=== PATIENT | male | born 1940 | race Caucasian/White ===

== ENCOUNTER 2020-06-09 13:50 | Outpatient (RCR) | payer MEDICARE, SELFPAY ==
[2020-06-16 20:38] LABS: Glucose, Whole Blood 222 mg/dL (60-115)
[2020-07-02 20:32] LABS: Glucose, Whole Blood 131 mg/dL (60-115)
[2020-07-03 20:21] LABS: Glucose, Whole Blood 138 mg/dL (60-115)
[2020-07-04 20:32] LABS: Glucose, Whole Blood 132 mg/dL (60-115)
[2020-07-05 14:13] LABS: Glucose, Whole Blood 159 mg/dL (60-115)
[2020-07-05 21:13] LABS: Glucose, Whole Blood 148 mg/dL (60-115)
[2020-07-06 20:25] LABS: Estimated Glomerular Filt Rate 8
[2020-07-06 21:22] LABS: Glucose, Whole Blood 160 mg/dL (60-115)
[2020-07-07 07:22] LABS: Anion Gap 25 (12-20); Blood Urea Nitrogen 125 mg/dL (9-16); Calcium 8.3 mg/dL (8.4-10.2); Carbon Dioxide 18 mmol/L (22-29); Chloride 101 mmol/L (96-108); Creatinine Clr Calc Pharmacy 10.1; Estimated Glomerular Filt Rate 8; Glucose Random 166 mg/dL (60-115); Potassium 5.7 mmol/l (3.3-5.1); Sodium 138 mmol/L (135-145)
== END 2020-07-07 | disposition short-term general hospital (02) ==
LOC: HO.SHU2 13:50
PROVIDERS: Visit Provider Hospitalist
DX: Z51.89 Encounter for other specified aftercare (principal)
CPT/HCPCS: 80048; 82565; 82947; J2270; J2543

== ENCOUNTER 2020-06-17 09:21 | Emergency (ER) | payer MEDICARE, SELFPAY ==
[2020-06-17] VITALS (7 sets, daily range): BP systolic 134–164; BP diastolic 43–82; PULSE 49–66; RESP 19–21; TEMP 36.7–38.7; O2SAT 97–99; BMI 37.5
--- NOTE | 2020-06-17 | US_ITS ---
EXAMINATION: US ABDOMEN LIMITED CLINICAL INFORMATION: Right abdominal pain.. COMPARISON: CT abdomen and pelvis 06/17/2020 TECHNIQUE: Real-time imaging of the right upper quadrant abdominal viscera. FINDINGS: Gallbladder is significantly distended measuring 14.8 x 4.0 x 4.3 cm. There is echogenic gallstones measuring 6.7 x 2.6 x 4.1 cm. Also visualized is echogenic bile/sludge. The gallbladder was diffusely thickened measuring 0.[address] abdomen exam patient has pericholecystic fat stranding. No pericholecystic fluid collection seen on ultrasound. Common bile duct is normal size measuring 0.44 cm. IMPRESSION: Findings consistent with cholelithiasis and cholecystitis. Results were discussed with Dr. Leslie Randhawa at 1:25 PM
--- NOTE | 2020-06-17 09:47 | ED.ABDPAIN ---
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) Limitations: no limitations History of Present Illness MD elicited complaint: abdominal pain Onset (ago): day(s) (2) Pain Consistency: constant Location: RLQ Severity: moderate Quality: aching Migration to: no migration Exacerbating factors: movement Relieving factors: nothing Associated symptoms: nausea and diarrhea Related Data Home Medications Medication Instructions Recorded Confirmed acetaminophen 650 mg PO Q4H PRN 06/17/20 06/17/20 apixaban 2.5 mg PO BID@0900,1700 06/17/20 06/17/20 bisacodyl 10 mg PA DAILY PRN 06/17/20 06/17/20 calcium carbonate [Tums E-X] 300 mg PO Q2H PRN 06/17/20 06/17/20 cholecalciferol (vitamin D3) 25 mcg PO DAILY 06/17/20 06/17/20 dextromethorphan-guaifenesin 10 ml PO Q4H PRN 06/17/20 06/17/20 [Guaifenesin DM] fenofibrate 54 mg PO DAILY 06/17/20 06/17/20 fluticasone furoate-vilanterol 1 inh INHALATION DAILY 06/17/20 06/17/20 [Breo Ellipta] fluticasone propionate [Flonase] 1 spray INTRANASAL DAILY 06/17/20 06/17/20 gabapentin 100 mg PO BEDTIME 06/17/20 06/17/20 hydralazine 25 mg PO TID@0600,1400,2200 06/17/20 06/17/20 hydrocortisone 1 applic TOPICAL BID 06/17/20 06/17/20 insulin glargine [Lantus U-100 20 unit SUBCUT BEDTIME 06/17/20 06/17/20 Insulin] loperamide 2 mg PO Q6H PRN 06/17/20 06/17/20 loratadine 10 mg PO DAILY 06/17/20 06/17/20 magnesium hydroxide [Milk of 30 ml PO DAILY PRN 06/17/20 06/17/20 Magnesia] metoprolol succinate 100 mg PO DAILY 06/17/20 06/17/20 multivitamin with minerals 1 tab PO DAILY 06/17/20 06/17/20 nifedipine [Nifedical XL] 90 mg PO DAILY 06/17/20 06/17/20 omeprazole 20 mg PO DAILY@1600 06/17/20 06/17/20 ondansetron 4 mg PO Q4H PRN 06/17/20 06/17/20 sertraline 50 mg PO DAILY 06/17/20 06/17/20 tamsulosin 0.4 mg PO DAILY 06/17/20 06/17/20 Allergies Allergy/AdvReac Type Severity Reaction Status Date / Time No Known Allergies Allergy Unverified 06/02/20 15:37 [No Known Allergies*] Review of Systems Review of Systems Constitutional : No Weight loss, positive Fever, No Chills ENT/Mouth : No sore throat, No Rhinorrhea Eyes: No Swelling, No Redness Cardiovascular : No Chest Pain, No SOB, NoEdema Respiratory : No Cough, No Sputum, No Wheezing Gastrointestinal : Positive Nausea, noVomiting, positive Diarrhea, positive abdominal Pain, No Hematochezia, No Melena Genitourinary : No Dysuria, No Urinary Frequency, No Hematuria, No Urgency Musculoskeletal : No joint pain, No Myalgias, No Joint Swelling Skin : No Skin Lesions, No rash Neuro : No Weakness, No Numbness, No Dizziness, No Headache Psych : No Anxiety/Panic, No Depression Heme/Lymph: No Bruising, No Lymphadenopathy Endocrine : No Polyuria, No Polydipsia All other systems reviewed and are negative. Physical Exam Vital Signs and I&O and Narrative: Vital Signs and I&O: Vital Signs Temp 98.8 F 06/17/20 12:15 Pulse 52 06/17/20 12:15 Resp 19 06/17/20 12:15 BP 134/51 L 06/17/20 12:15 Pulse Ox 98 06/17/20 12:15 Intake & Output 06/16/20 06/17/20 06/17/20 18:59 06:59 18:59 Intake Total 1100 / 1100 Balance 1100 / 1100 Weight 108.912 kg Intake: Intake, IV Amoun t 1099 Magnesium Sulf ate/H2O 2 gm In 50 / 50 50 ml @ 50 mls /hr IV ONCE ONE Rx#:[id number] Piperacillin S odium/Tazobactam 50 / 50 3.375 gm In 0. 9 % Sodium Chloride 50 ml @ 100 mls/hr IV ONCE ONE Rx#:[id number] 0.9 % Sodium C hloride 1,000 ml 1000 / 1000 @ 999 mls/hr I VCONT .Q1H1M ARAM Rx#:[id number] Body Mass Index 37.5 Appearance: Alert. Oriented X3. No acute distress. Eyes: Pupils equal, round and reactive to light. ENT: Pharynx normal. Neck: Normal inspection. Neck supple. CVS: Normal heart rate and rhythm. Pulses normal. Respiratory: No respiratory distress. Breath sounds normal. Abdomen: Soft and moderate LRQ ttp. Skin: Skin warm and dry. Normal skin color. Normal skin turgor. Extremities: No lower extremity edema. No lower extremity edema. Neuro: Oriented X 3. No motor deficit. No sensory deficit. Course Reevaluation(s) Reevaluation #1: call From Radiology - order US to confirm GB pathology but overall ascending colon partial obstruction from inflammation and diverticulitis Time: 11:55 Reevaluation #2: call To Dr. Randhawa Time: 13:40 Reevaluation #3: patient with complicated history - Dr. Randhawa thinks given his apixaban use, medical problems and presentation should go to tertiary center will contact [facility] now pending call back from Dr. Zaldivar from surgery Additional Reevaluation(s): per Dr. Zaldivar send to [facility] ED at this time MDM - Abdominal Pain MDM Narrative Medical decision making narrative: patient with fevers, RLQ ttp and diarrhea, will need labs, cultures, lactic acid, IVF, tylenol, morphine for pain CT scan to evalutae for colitis/appendicitis, empiric zosyn ordered Lab Data Result diagrams: 06/17/20 10:20 06/17/20 10:20 Labs: Lab Results 06/17/20 06/17/20 06/17/20 Range/Units 10:20 10:20 10:20 WBC 10.8 (4.8-10.8) X10*3/uL RBC 3.72 L (4.60-5.80) X10*6/uL Hgb 9.3 L (14.0-18.0) g/dl Hct 30.8 L (42-52) % MCV 82.8 (80-98) fL MCH 25.0 L (27.0-33.0) pg MCHC 30.2 L (31.0-36.0) g/dl RDW 15.9 (11.0-16.0) % Plt Count 241 (160-400) X10*3/uL MPV 10.5 (9.4-12.4) fL Immature Gran % (Auto) 0.6 H (0.0-0.4) % Neut % (Auto) 75.7 H (45-73) % Lymph % (Auto) 9.1 L (20-40) % Moca % (Auto) 11.6 H (2-11) % Eos % (Auto) 2.9 (0-4) % Baso % (Auto) 0.1 (0-2) % Neut # (Auto) 8.2 (2.0-8.3) X10*3/uL Lymph # (Auto) 1.0 L (1.2-4.9) X10*3/uL [place]oca # (Auto) 1.3 H (0.1-1.2) X10*3/uL Eos # (Auto) 0.3 (0.0-0.4) X10*3/uL Baso # (Auto) 0.0 (0.0-0.2) X10*3/uL Abs Immat Gran (auto) 0.06 H (0.00-0.03) X10*3/uL Absolute Nucleated RBC 0.000 (0.0-0.012) X10*3/uL Nucleated RBC % (auto) 0.0 (0.0-0.2) /100WBC PT 16.7 H (10.8-13.0) SEC INR 1.4 H (0.9-1.1) APTT 32.3 (24.1-38.0) SEC Sodium 140 (135-145) mmol/L Potassium 3.8 (3.3-5.1) mmol/l Chloride 105 (96-108) mmol/L Carbon Dioxide 28 (22-29) mmol/L Anion Gap 11 L (12-20) BUN 31 H (9-16) mg/dL Creatinine 1.65 H (0.5-1.4) mg/dL Estim Creat Clear Calc 42.0 Estimated GFR 40 Random Glucose 197 H (60-115) mg/dL Lactic Acid (0.5-2.0) mmol/L Calcium 8.1 L (8.4-10.2) mg/dL Magnesium 1.2 L* (1.6-2.6) mg/dL Total Bilirubin 0.3 (0.0-1.0) mg/dL Direct Bilirubin 0.2 (0.0-0.5) mg/dL AST 9 (5-37) U/L ALT 8 (0-40) U/L Alkaline Phosphatase 60 (39-117) U/L Total Protein 6.3 L (6.5-8.0) g/dL Albumin 3.2 L (3.5-5.0) g/dL Lipase 22 (8-78) U/L 06/17/20 Range/Units 10:42 WBC (4.8-10.8) X10*3/uL RBC (4.60-5.80) X10*6/uL Hgb (14.0-18.0) g/dl Hct (42-52) % MCV (80-98) fL MCH (27.0-33.0) pg MCHC (31.0-36.0) g/dl RDW (11.0-16.0) % Plt Count (160-400) X10*3/uL MPV (9.4-12.4) fL Immature Gran % (Auto) (0.0-0.4) % Neut % (Auto) (45-73) % Lymph % (Auto) (20-40) % Moca % (Auto) (2-11) % Eos % (Auto) (0-4) % Baso % (Auto) (0-2) % Neut # (Auto) (2.0-8.3) X10*3/uL Lymph # (Auto) (1.2-4.9) X10*3/uL Moca # (Auto) (0.1-1.2) X10*3/uL Eos # (Auto) (0.0-0.4) X10*3/uL Baso # (Auto) (0.0-0.2) X10*3/uL Abs Immat Gran (auto) (0.00-0.03) X10*3/uL Absolute Nucleated RBC (0.0-0.012) X10*3/uL Nucleated RBC % (auto) (0.0-0.2) /100WBC PT (10.8-13.0) SEC INR (0.9-1.1) APTT (24.1-38.0) SEC Sodium (135-145) mmol/L Potassium (3.3-5.1) mmol/l Chloride (96-108) mmol/L Carbon Dioxide (22-29) mmol/L Anion Gap (12-20) BUN (9-16) mg/dL Creatinine (0.5-1.4) mg/dL Estim Creat Clear Calc Estimated GFR Random Glucose (60-115) mg/dL Lactic Acid 0.8 (0.5-2.0) mmol/L Calcium (8.4-10.2) mg/dL Magnesium (1.6-2.6) mg/dL Total Bilirubin (0.0-1.0) mg/dL Direct Bilirubin (0.0-0.5) mg/dL AST (5-37) U/L ALT (0-40) U/L Alkaline Phosphatase (39-117) U/L Total Protein (6.5-8.0) g/dL Albumin (3.5-5.0) g/dL Lipase (8-78) U/L ECG Data Attestation: I personally reviewed and interpreted this ECG as follows: ECG interpretation date: 06/17/20 ECG interpretation time: 11:47 Interpretation: Rate:51 Rhythm: sinus bradycardia [place]: normal axis Normal P waves. Normal SOLA. Normal QRS complex. ST T wave : nonspecific changes qTC: normal The study has been interpreted contemporaneously by me. . Critical Care Time Critical Care Time Critical Care Time: Yes Total Critical Care Time: 60 Attestation: I personally attest to this time spent taking care of patientI personally attest to this time spent taking care of the patient Discharge Plan Discharge Clinical Impression: Cholecystitis, Partial bowel obstruction, Abdominal pain Patient Disposition: er [facility] Prescriptions: No Action acetaminophen 325 mg Tablet 650 mg PO Q4H PRN (Reason: Cold Symptoms) RF: 0 bisacodyl 10 mg Suppository 10 mg PA DAILY PRN (Reason: Anaphylaxis) RF: 0 apixaban 2.5 mg Tablet 2.5 mg PO BID@0900,1700 RF: 0 hydralazine 25 mg Tablet 25 mg PO TID@0600,1400,2200 RF: 0 calcium carbonate [Tums E-X] 300 mg (750 mg) Tablet,Chewable 300 mg PO Q2H PRN (Reason: Heartburn) RF: 0 dextromethorphan-guaifenesin [Guaifenesin DM] 10-100 mg/5 mL Syrup 10 ml PO Q4H PRN (Reason: Cough) RF: 0 hydrocortisone 1 % Cream 1 applic TOPICAL BID RF: 0 gabapentin 100 mg Capsule 100 mg PO BEDTIME RF: 0 fluticasone propionate [Flonase] 50 mcg/actuation [place],Suspension 1 spray INTRANASAL DAILY RF: 0 cholecalciferol (vitamin D3) 25 mcg (1,000 unit) Tablet 25 mcg PO DAILY RF: 0 fenofibrate 54 mg Tablet 54 mg PO DAILY RF: 0 Breo Ellipta 100-25 mcg/dose Blister With Device 1 inh INHALATION DAILY RF: 0 Lantus U-100 Insulin 100 unit/mL Solution 20 unit SUBCUT BEDTIME RF: 0 loperamide 2 mg Capsule 2 mg PO Q6H PRN (Reason: Diarrhea) RF: 0 metoprolol succinate 100 mg Tablet Extended Release 24 Hr 100 mg PO DAILY RF: 0 magnesium hydroxide [Milk of Magnesia] 400 mg/5 mL Suspension 30 ml PO DAILY PRN (Reason: Constipation) RF: 0 loratadine 10 mg Tablet 10 mg PO DAILY RF: 0 nifedipine [Nifedical XL] 30 mg Tablet Extended Release 24hr 90 mg PO DAILY RF: 0 omeprazole 20 mg Capsule,Delayed Release(Dr/Ec) 20 mg PO DAILY@1600 RF: 0 multivitamin with minerals Tablet 1 tab PO DAILY RF: 0 tamsulosin 0.4 mg Capsule 0.4 mg PO DAILY RF: 0 ondansetron 4 mg Tablet,Disintegrating 4 mg PO Q4H PRN (Reason: Nausea And Vomiting) RF: 0 sertraline 50 mg Tablet 50 mg PO DAILY RF: 0 PMFSH Past Medical History Attestation statement: The following information was validated with the patient. Medical History Basal cell carcinoma of skin, unspecified Cardiomegaly Cerebral infarction, unspecified Chronic kidney disease, unspecified Chronic obstructive pulmonary disease, unspecified Diabetes Diverticulitis of intestine, part unspecified, without perforation or abscess without bleeding Dorsalgia Dysphagia, unspecified GERD without esophagitis Heart failure HTN (hypertension) Hyperlipidemia, unspecified Morbid obesity with alveolar hypoventilation Paroxysmal A-fib Primary pulmonary hypertension Sleep apnea Spinal stenosis, site unspecified Squamous cell carcinoma of skin, unspecified Unspecified hearing loss Urinary tract infection Surgical History No significant past surgical history Social History Social History (Updated 06/17/20 @ 10:33 by Bianca Hernández DO) Alcohol intake: never Smoking Status: Never smoker Advance Directives: No Advance Directives Information Provided: No
--- NOTE | 2020-06-17 09:48 | ECG_ITS ---
Test Reason : ABD PAIN Blood Pressure : / mmHG Vent. Rate : 051 BPM Atrial Rate : 051 BPM P-R Int : 208 ms QRS Dur : 094 ms QT Int : 488 ms P-R-T Axes : -61 012 024 degrees QTc Int : 449 ms Unusual P axis, possible ectopic atrial bradycardia Nonspecific ST abnormality Abnormal ECG No previous ECGs available Referred By: Bianca Hernández Electronically Signed By:NELI ONTIVEROS
--- NOTE | 2020-06-17 10:01 | CT_ITS ---
EXAMINATION: CT ABDOMEN AND PELVIS WITHOUT CONTRAST CLINICAL INFORMATION: Right lower quadrant pain and fevers. COMPARISON: None TECHNIQUE: Multidetector volumetric imaging was performed from the superior aspect of the liver through the pubic symphysis. Sagittal and coronal reformatted images were obtained on the technologist's workstation. This CT examination was performed using dose optimization techniques as appropriate, variously including the following: *Automated exposure control *Adjustment of mA and/or kV according to patient size (this includes techniques or standardized protocols for targeted exams where dose is matched to indication/reason for exam; i.e. extremities or head) *Use of iterative reconstruction technique DLP: 970 mGy-cm FINDINGS: LUNG BASES: The heart size is normal. There is minimal bibasilar atelectasis. Mild thickening of left posterior lateral pericardium is noted. LIVER, GALLBLADDER, AND BILIARY TREE: The liver is normal in size, shape, and attenuation. No focal hepatic lesion or biliary ductal dilatation is present. The gallbladder is distended space-occupying lesion measuring 6.1 cm wide, 4.1 cm in AP and 4.2 cm in craniocaudad length with diffuse wall thickening compressing the right hepatic flexure and narrowing it. PANCREAS: Unremarkable. SPLEEN: Unremarkable. ADRENAL GLANDS: Unremarkable. KIDNEYS AND URETERS: The kidneys are normal in size, shape, and attenuation. No hydronephrosis, hydroureter, or calculi seen. No perinephric stranding. There is a 4.2 x 3.7 cm exophytic cyst lower pole right kidney. Smaller cortical based slightly 1.1 cm hypodense lesion seen along the posterior cortex left kidney is a complex cyst or a lesion and a intrapelvic diverticulum or a cyst measuring 2.2 cm mid to lower pole left kidney. BLADDER: Unremarkable. GASTROINTESTINAL TRACT: There is significant distention of ascending colon with moderate stool from the cecum to the level of ascending colon likely secondary inflammatory process from gallbladder disease. There are scattered diverticuli seen throughout the colon without changes of diverticulitis.. The small bowel loops are normal caliber. Appendix is not visualized. No free fluid or free air seen. The stomach is nondistended and appears unremarkable. ABDOMINAL WALL: No significant hernia is appreciated. LYMPH NODES: Small shotty lymph nodes in the retroperitoneum with largest 1.2 cm lymph node para-aortic region axial image 51/3. VASCULAR: Unremarkable. PELVIC VISCERA: The prostate gland is enlarged with central gland calcification. No abnormal mass seen. No free fluid. OSSEOUS STRUCTURES: There are degenerative disc changes at L5-S1, L4-L5 and L3-L4 disc levels. IMPRESSION: Severely distended gallbladder with a soft tissue mass with calcified bravo question stone versus large mass. There is a diffuse wall thickening and inflammatory changes compressing and likely secondary inflammatory changes of the ascending colon. This results in moderate distention of ascending colon and obstruction. There is fat stranding seen adjacent to the proximal ascending colon with minimal fluid in the paracolic gutter. There is scattered colonic diverticula cyst. Bilateral simple renal cysts and a moderate size simple exophytic cyst lower pole right kidney and a complex cyst midpole left kidney. Bilateral lower lobe atelectasis and posterior pleural thickening. Recommend gallbladder ultrasound to confirm gallbladder stone versus mass and cholecystitis. Results were called to Dr. Bianca Coronel by phone in the ER at 11:15 AM
[2020-06-17 10:25] LABS: MANUAL DIFF FLAG NO
[2020-06-17] MEDS: ondansetron HCL 4 MG/2 ML VIAL IVPUSH (10:28)
[2020-06-17] MEDS: 0.9 % Sodium Chloride 1,000 ML 999 ML IVCONT (10:28)
[2020-06-17 10:31] LABS: Basophils Percent Auto 0.1 % (0-2); Eosinophils Absolute Auto 0.3 X10*3/uL (0.0-0.4); Eosinophils Percent Auto 2.9 % (0-4); Hematocrit 30.8 % (42-52); Hemoglobin 9.3 g/dl (14.0-18.0); Imm Gran Abs Auto 0.06 X10*3/uL (0.00-0.03); Imm Gran Pct Auto 0.6 % (0.0-0.4); Lymphocytes Percent Auto 9.1 % (20-40); Mean Corpuscular HGB Conc 30.2 g/dl (31.0-36.0); Mean Corpuscular Volume 82.8 fL (80-98); Mean Platelet Volume 10.5 fL (9.4-12.4); Monocytes Absolute Auto 1.3 X10*3/uL (0.1-1.2); Monocytes Percent Auto 11.6 % (2-11); Neutrophils Absolute Auto 8.2 X10*3/uL (2.0-8.3); Neutrophils Percent Auto 75.7 % (45-73); Platelet Count 241 X10*3/uL (160-400); Red Blood Count 3.72 X10*6/uL (4.60-5.80); Red Cell Distribution Width 15.9 % (11.0-16.0); White Blood Count 10.8 X10*3/uL (4.8-10.8)
--- NOTE | 2020-06-17 10:33 | PC.NURSE ---
spoke with rn Nicki on med surg regarding pt. she reports pt began having abdominal discomfort Saturday and some decrease appetite. tito better and then had diarrhea that was watery. he was to start on flagyl but never received a dose. stool sample was ordered to r/o c diff but pt diarrhea has stopped before sample collected. today had temp so decission made to send to ed for further work up. pt is alert and oriented at this time. reports some aching low abdominal pain, rlq. has not had bm since coming to ed.
[2020-06-17 10:34] LABS: INTERNATIONAL NORM RATIO 1.4 (0.9-1.1); Prothrombin Time 16.7 SEC (10.8-13.0)
[2020-06-17 10:37] LABS: Partial Thromboplastin Time 32.3 SEC (24.1-38.0)
[2020-06-17] MEDS: Piperacillin Sodium/Tazobactam 3.375 GM in 0.9 % Sodium Chloride 50 ML IV (10:44)
[2020-06-17 10:56] LABS: Calcium 8.1 mg/dL (8.4-10.2)
[2020-06-17 11:02] LABS: Alanine Aminotransferase 8 U/L (0-40); Albumin Level 3.2 g/dL (3.5-5.0); Alkaline Phosphatase 60 U/L (39-117); Anion Gap 11 (12-20); Aspartate Amino Transferase 9 U/L (5-37); Bilirubin Direct 0.2 mg/dL (0.0-0.5); Bilirubin Total 0.3 mg/dL (0.0-1.0); Blood Urea Nitrogen 31 mg/dL (9-16); Carbon Dioxide 28 mmol/L (22-29); Chloride 105 mmol/L (96-108); Estimated Glomerular Filt Rate 40; Glucose Random 197 mg/dL (60-115); Lipase 22 U/L (8-78); Magnesium 1.2 mg/dL (1.6-2.6); Potassium 3.8 mmol/l (3.3-5.1); Sodium 140 mmol/L (135-145); Total Protein 6.3 g/dL (6.5-8.0)
[2020-06-17] MEDS: Morphine Sulfate 4 MG/ML CARTRIDGE IVPUSH ×2 (11:07→14:11)
[2020-06-17] MEDS: Acetaminophen 325 MG TABLET 650 MG PO (11:08)
[2020-06-17] MEDS: Magnesium Sulfate/H2O 2 GM/50 ML PIGGYBACK IV (11:12)
[2020-06-17 11:19] LABS: Lactic Acid 0.8 mmol/L (0.5-2.0)
--- NOTE | 2020-06-17 12:20 | PC.NURSE ---
pt sleeping after medicated, reports improvement in rlq pain. wating to be assessed by dr real.
--- NOTE | 2020-06-17 14:10 | ED.ABDPAIN ---
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 Limitations: no limitations History of Present Illness HPI narrative: This is an 79-year-old gentleman whom I am seeing in consultation for complaints of abdominal pain and findings of obstruction of the right colon apparently related to an inflamed gallbladder. He is a resident at the [facility]. Per report of the nursing staff at the [facility], he developed loose stool 2 days ago and had complaints of abdominal pain. The loose stool resolved but the complaints of abdominal pain persisted. He had a fever earlier today and was brought to the emergency department for further evaluation. He reports ongoing a right lower quadrant abdominal pain. He does not report nausea or vomiting. He does not think that he had of fever or chills at [facility] but is aware that he had a fever on admission to the emergency department this morning. He reports that his appetite has been okay. He has not had similar problems in the past on offers no other complaints. In the emergency department, white blood count was found to be normal at 10.8 with a slight left shift. Liver function studies were normal as well except for slightly low total protein and albumin levels. CT scan of the abdomen and pelvis revealed: Severely distended gallbladder with a soft tissue mass with calcified bravo question stone versus large mass. There is a diffuse wall thickening and inflammatory changes compressing and likely secondary inflammatory changes of the ascending colon. This results in moderate distention of ascending colon and obstruction. There is fat stranding seen adjacent to the proximal ascending colon with minimal fluid in the paracolic gutter. Ultrasound revealed gallstones and thickening of the gallbladder wall consistent with acute cholecystitis. I reviewed the CT and ultrasound images with Dr. Ritchie in Radiology. Laboratory Results - last 24 hr 06/17/20 06/17/20 06/17/20 10:20 10: 10:20 WBC 10.8 RBC 3.72 L Hgb 9.3 L Hct 30.8 L MCV 82.8 MCH 25.0 L MCHC 30.2 L RDW 15.9 Plt Count 241 MPV 10.5 Immature Gran % (Auto) 0.6 H Neut % (Auto) 75.7 H Lymph % (Auto) 9.1 L [place] % (Auto) 11.6 H Eos % (Auto) 2.9 Baso % (Auto) 0.1 Neut # (Auto) 8.2 Lymph # (Auto) 1.0 L [place] # (Auto) 1.3 H Eos # (Auto) 0.3 Baso # (Auto) 0.0 Abs Immat Gran (auto) 0.06 H Absolute Nucleated RBC 0.000 Nucleated RBC % (auto) 0.0 PT 16.7 H INR 1.4 H APTT 32.3 Sodium 140 Potassium 3.8 Chloride 105 Carbon Dioxide 28 Anion Gap 11 L BUN 31 H Creatinine 1.65 H Estim Creat Clear Calc 42.0 Estimated GFR 40 Random Glucose 197 H Lactic Acid Calcium 8.1 L Magnesium 1.2 L* Total Bilirubin 0.3 Direct Bilirubin 0.2 AST 9 ALT 8 Alkaline Phosphatase 60 Total Protein 6.3 L Albumin 3.2 L Lipase 22 06/17/20 10:42 WBC RBC Hgb Hct MCV MCH MCHC RDW Plt Count MPV Immature Gran % (Auto) Neut % (Auto) Lymph % (Auto) [place] % (Auto) Eos % (Auto) Baso % (Auto) Neut # (Auto) Lymph # (Auto) [place] # (Auto) Eos # (Auto) Baso # (Auto) Abs Immat Gran (auto) Absolute Nucleated RBC Nucleated RBC % (auto) PT INR APTT Sodium Potassium Chloride Carbon Dioxide Anion Gap BUN Creatinine Estim Creat Clear Calc Estimated GFR Random Glucose Lactic Acid 0.8 Calcium Magnesium Total Bilirubin Direct Bilirubin AST ALT Alkaline Phosphatase Total Protein Albumin Lipase MD elicited complaint: abdominal pain Severity: moderate Quality: aching Migration to: no migration Exacerbating factors: movement Relieving factors: nothing Associated symptoms: nausea and diarrhea Related Data Home Medications Medication Instructions Recorded Confirmed acetaminophen 650 mg PO Q4H PRN 06/17/20 06/17/20 apixaban 2.5 mg PO BID@0900,1700 06/17/20 06/17/20 bisacodyl 10 mg IN DAILY PRN 06/17/20 06/17/20 calcium carbonate [Tums E-X] 300 mg PO Q2H PRN 06/17/20 06/17/20 cholecalciferol (vitamin D3) 25 mcg PO DAILY 06/17/20 06/17/20 dextromethorphan-guaifenesin 10 ml PO Q4H PRN 06/17/20 06/17/20 [Guaifenesin DM] fenofibrate 54 mg PO DAILY 06/17/20 06/17/20 fluticasone furoate-vilanterol 1 inh INHALATION DAILY 06/17/20 06/17/20 [Breo Ellipta] fluticasone propionate [Flonase] 1 spray INTRANASAL DAILY 06/17/20 06/17/20 gabapentin 100 mg PO BEDTIME 06/17/20 06/17/20 hydralazine 25 mg PO TID@0600,1400,2200 06/17/20 06/17/20 hydrocortisone 1 applic TOPICAL BID 06/17/20 06/17/20 insulin glargine [Lantus U-100 20 unit SUBCUT BEDTIME 06/17/20 06/17/20 Insulin] loperamide 2 mg PO Q6H PRN 06/17/20 06/17/20 loratadine 10 mg PO DAILY 06/17/20 06/17/20 magnesium hydroxide [Milk of 30 ml PO DAILY PRN 06/17/20 06/17/20 Magnesia] metoprolol succinate 100 mg PO DAILY 06/17/20 06/17/20 multivitamin with minerals 1 tab PO DAILY 06/17/20 06/17/20 nifedipine [Nifedical XL] 90 mg PO DAILY 06/17/20 06/17/20 omeprazole 20 mg PO DAILY@1600 06/17/20 06/17/20 ondansetron 4 mg PO Q4H PRN 06/17/20 06/17/20 sertraline 50 mg PO DAILY 06/17/20 06/17/20 tamsulosin 0.4 mg PO DAILY 06/17/20 06/17/20 Allergies Allergy/AdvReac Type Severity Reaction Status Date / Time No Known Allergies Allergy Unverified 06/02/20 15:37 [No Known Allergies*] Review of Systems Cardiovascular: Denies chest pain and Denies dyspnea Respiratory: Denies cough and Denies dyspnea Physical Exam Vital Signs and I&O and Narrative: Vital Signs and I&O: Vital Signs Temp 98.1 F 06/17/20 14:12 Pulse 49 L 06/17/20 15:07 Resp 19 06/17/20 14:12 BP 164/82 H 06/17/20 15:07 Pulse Ox 99 06/17/20 15:07 Intake & Output 06/16/20 06/17/20 06/17/20 18:59 06:59 18:59 Intake Total 1100 / 1100 Balance 1100 / 1100 Weight 240 lb 1.75 oz Intake: Intake, IV Amoun t 1099 Magnesium Sulf ate/H2O 2 gm In 50 / 50 50 ml @ 50 mls /hr IV ONCE ONE Rx#:[id number] Piperacillin S odium/Tazobactam 50 / 50 3.375 gm In 0. 9 % Sodium Chloride 50 ml @ 100 mls/hr IV ONCE ONE Rx#:[id number] 0.9 % Sodium C hloride 1,000 ml 1000 / 1000 @ 999 mls/hr I VCONT .Q1H1M ARAM Rx#:[id number] Body Mass Index 37.5 Const: General: cooperative and no acute distress Orientation/consciousness: oriented to person and oriented to place HENMT: Ears: hearing grossly abnormal bilaterally and hearing grossly impaired ( uses hearing aids) Eyes: Sclerae: sclerae normal EOM: EOMs intact bilaterally Resp: Effort & Inspection: normal respiratory effort Auscultation: diminished lung sounds Cardio: Rate: regular rate Rhythm: regular rhythm GI: Other: mildly distended tender laterally on the right with fullness and mild rebound present, no palpable masses, no obvious organomegaly Skin: Other: normal color, warm and dry Neuro: General: oriented to person and oriented to place MDM - Abdominal Pain MDM Narrative Medical decision making narrative: 79-year-old male with unusual finding of colonic obstruction at the level of the proximal transverse colon apparently related to acute calculous cholecystitis though neoplasm is a possibility as well. He has a complicated past medical history including diabetes mellitus, COPD, CHF and paroxysmal atrial fibrillation. He is chronically anticoagulated on Eliquis. Due to the unusual and potentially complicated nature of his abdominal process and medical history, transfer to a tertiary center is appropriate. Case discussed with Dr. Hernández. Lab Data Result diagrams: 06/17/20 10:20 06/17/20 10: Labs: Lab Results 06/17/20 06/17/20 06/17/20 Range/Units 10:20 10:20 10:20 WBC 10.8 (4.8-10.8) X10*3/uL RBC 3.72 L (4.60-5.80) X10*6/uL Hgb 9.3 L (14.0-18.0) g/dl Hct 30.8 L (42-52) % MCV 82.8 (80-98) fL MCH 25.0 L (27.0-33.0) pg MCHC 30.2 L (31.0-36.0) g/dl RDW 15.9 (11.0-16.0) % Plt Count 241 (160-400) X10*3/uL MPV 10.5 (9.4-12.4) fL Immature Gran % (Auto) 0.6 H (0.0-0.4) % Neut % (Auto) 75.7 H (45-73) % Lymph % (Auto) 9.1 L (20-40) % [place] % (Auto) 11.6 H (2-11) % Eos % (Auto) 2.9 (0-4) % Baso % (Auto) 0.1 (0-2) % Neut # (Auto) 8.2 (2.0-8.3) X10*3/uL Lymph # (Auto) 1.0 L (1.2-4.9) X10*3/uL [place] # (Auto) 1.3 H (0.1-1.2) X10*3/uL Eos # (Auto) 0.3 (0.0-0.4) X10*3/uL Baso # (Auto) 0.0 (0.0-0.2) X10*3/uL Abs Immat Gran (auto) 0.06 H (0.00-0.03) X10*3/uL Absolute Nucleated RBC 0.000 (0.0-0.012) X10*3/uL Nucleated RBC % (auto) 0.0 (0.0-0.2) /100WBC PT 16.7 H (10.8-13.0) SEC INR 1.4 H (0.9-1.1) APTT 32.3 (24.1-38.0) SEC Sodium 140 (135-145) mmol/L Potassium 3.8 (3.3-5.1) mmol/l Chloride 105 (96-108) mmol/L Carbon Dioxide 28 (22-29) mmol/L Anion Gap 11 L (12-20) BUN 31 H (9-16) mg/dL Creatinine 1.65 H (0.5-1.4) mg/dL Estim Creat Clear Calc 42.0 Estimated GFR 40 Random Glucose 197 H (60-115) mg/dL Lactic Acid (0.5-2.0) mmol/L Calcium 8.1 L (8.4-10.2) mg/dL Magnesium 1.2 L* (1.6-2.6) mg/dL Total Bilirubin 0.3 (0.0-1.0) mg/dL Direct Bilirubin 0.2 (0.0-0.5) mg/dL AST 9 (5-37) U/L ALT 8 (0-40) U/L Alkaline Phosphatase 60 (39-117) U/L Total Protein 6.3 L (6.5-8.0) g/dL Albumin 3.2 L (3.5-5.0) g/dL Lipase 22 (8-78) U/L Coronavirus (PCR) (Negative) 06/17/20 06/17/20 Range/Units 10:42 14:02 WBC (4.8-10.8) X10*3/uL RBC (4.60-5.80) X10*6/uL Hgb (14.0-18.0) g/dl Hct (42-52) % MCV (80-98) fL MCH (27.0-33.0) pg MCHC (31.0-36.0) g/dl RDW (11.0-16.0) % Plt Count (160-400) X10*3/uL MPV (9.4-12.4) fL Immature Gran % (Auto) (0.0-0.4) % Neut % (Auto) (45-73) % Lymph % (Auto) (20-40) % [place] % (Auto) (2-11) % Eos % (Auto) (0-4) % Baso % (Auto) (0-2) % Neut # (Auto) (2.0-8.3) X10*3/uL Lymph # (Auto) (1.2-4.9) X10*3/uL [place] # (Auto) (0.1-1.2) X10*3/uL Eos # (Auto) (0.0-0.4) X10*3/uL Baso # (Auto) (0.0-0.2) X10*3/uL Abs Immat Gran (auto) (0.00-0.03) X10*3/uL Absolute Nucleated RBC (0.0-0.012) X10*3/uL Nucleated RBC % (auto) (0.0-0.2) /100WBC PT (10.8-13.0) SEC INR (0.9-1.1) APTT (24.1-38.0) SEC Sodium (135-145) mmol/L Potassium (3.3-5.1) mmol/l Chloride (96-108) mmol/L Carbon Dioxide (22-29) mmol/L Anion Gap (12-20) BUN (9-16) mg/dL Creatinine (0.5-1.4) mg/dL Estim Creat Clear Calc Estimated GFR Random Glucose (60-115) mg/dL Lactic Acid 0.8 (0.5-2.0) mmol/L Calcium (8.4-10.2) mg/dL Magnesium (1.6-2.6) mg/dL Total Bilirubin (0.0-1.0) mg/dL Direct Bilirubin (0.0-0.5) mg/dL AST (5-37) U/L ALT (0-40) U/L Alkaline Phosphatase (39-117) U/L Total Protein (6.5-8.0) g/dL Albumin (3.5-5.0) g/dL Lipase (8-78) U/L Coronavirus (PCR) NEGATIVE (Negative) Discharge Plan Discharge Clinical Impression: Cholecystitis Partial bowel obstruction Qualifiers: Intestinal obstruction type: unspecified Qualified Code(s): K56.600 - Partial intestinal obstruction, unspecified as to cause Abdominal pain Qualifiers: Abdominal location: right lower quadrant Qualified Code(s): R10.31 - Right lower quadrant pain Patient Disposition: [facility] Prescriptions: No Action acetaminophen 325 mg Tablet 650 mg PO Q4H PRN (Reason: Cold Symptoms) RF: 0 bisacodyl 10 mg Suppository 10 mg IN DAILY PRN (Reason: Anaphylaxis) RF: 0 apixaban 2.5 mg Tablet 2.5 mg PO BID@0900,1700 RF: 0 hydralazine 25 mg Tablet 25 mg PO TID@0600,1400,2200 RF: 0 calcium carbonate [Tums E-X] 300 mg (750 mg) Tablet,Chewable 300 mg PO Q2H PRN (Reason: Heartburn) RF: 0 dextromethorphan-guaifenesin [Guaifenesin DM] 10-100 mg/5 mL Syrup 10 ml PO Q4H PRN (Reason: Cough) RF: 0 hydrocortisone 1 % Cream 1 applic TOPICAL BID RF: 0 gabapentin 100 mg Capsule 100 mg PO BEDTIME RF: 0 fluticasone propionate [Flonase] 50 mcg/actuation [place],Suspension 1 spray INTRANASAL DAILY RF: 0 cholecalciferol (vitamin D3) 25 mcg (1,000 unit) Tablet 25 mcg PO DAILY RF: 0 fenofibrate 54 mg Tablet 54 mg PO DAILY RF: 0 Breo Ellipta 100-25 mcg/dose Blister With Device 1 inh INHALATION DAILY RF: 0 Lantus U-100 Insulin 100 unit/mL Solution 20 unit SUBCUT BEDTIME RF: 0 loperamide 2 mg Capsule 2 mg PO Q6H PRN (Reason: Diarrhea) RF: 0 metoprolol succinate 100 mg Tablet Extended Release 24 Hr 100 mg PO DAILY RF: 0 magnesium hydroxide [Milk of Magnesia] 400 mg/5 mL Suspension 30 ml PO DAILY PRN (Reason: Constipation) RF: 0 loratadine 10 mg Tablet 10 mg PO DAILY RF: 0 nifedipine [Nifedical XL] 30 mg Tablet Extended Release 24hr 90 mg PO DAILY RF: 0 omeprazole 20 mg Capsule,Delayed Release(Dr/Ec) 20 mg PO DAILY@1600 RF: 0 multivitamin with minerals Tablet 1 tab PO DAILY RF: 0 tamsulosin 0.4 mg Capsule 0.4 mg PO DAILY RF: 0 ondansetron 4 mg Tablet,Disintegrating 4 mg PO Q4H PRN (Reason: Nausea And Vomiting) RF: 0 sertraline 50 mg Tablet 50 mg PO DAILY RF: 0 Interventions: Acute Care Transfer Worksheet (ED) Last Done: 06/17/20 15:20 Discharge Date/Time: 06/17/20 15:28 [facility] Past Medical History Medical History Basal cell carcinoma of skin, unspecified Cardiomegaly Cerebral infarction, unspecified Chronic kidney disease, unspecified Chronic obstructive pulmonary disease, unspecified Diabetes Diverticulitis of intestine, part unspecified, without perforation or abscess without bleeding Dorsalgia Dysphagia, unspecified GERD without esophagitis Heart failure HTN (hypertension) Hyperlipidemia, unspecified Morbid obesity with alveolar hypoventilation Paroxysmal A-fib Primary pulmonary hypertension Sleep apnea Spinal stenosis, site unspecified Squamous cell carcinoma of skin, unspecified Unspecified hearing loss Urinary tract infection Surgical History No significant past surgical history Social History Social History (Updated 06/17/20 @ 10:33 by Bianca Hernández DO) Alcohol intake: never Smoking Status: Never smoker Advance Directives: No Advance Directives Information Provided: No
--- NOTE | 2020-06-17 15:03 | PC.NURSE ---
Report given to EMS personnel, pt to be transferred to [facility] at this time. States pain 5/10, no acute distress at this time
[2020-06-17 15:15] LABS: SARS COV2 PCR INHOUSE NEGATIVE (Negative)
== END 2020-06-17 15:28 | disposition short-term general hospital (02) ==
PROVIDERS: Emergency Provider Emergency Medicine; PCP Hospitalist
DX: K56.600 Partial intestinal obstruction, unspecified as to cause (principal); R10.31 Right lower quadrant pain; I10 Essential (primary) hypertension; Z79.899 Other long term (current) drug therapy
CPT/HCPCS: 36415; 74176; 76705; 80048; 80076; 83605; 83690; 83735; 85025; 85610; 85730; 87040; 87635; 93005; 93010; 96365; 96367; 96375; 96376; 99284; 99291; J2270; J2543; J3475